=== PATIENT | male | born 1980 | race Caucasian/White ===

== ENCOUNTER 2020-01-17 18:38 | Emergency (ER) | payer OTHER ==
[~2020-01-17] VITALS: Ht 188 cm; Wt 70.3 kg
[2020-01-17 19:07] LABS: ABSOLUTE BASOPHILS 0.1 thou/uL (0.0-0.2); ABSOLUTE EOSINOPHILS 0.1 thou/uL (0.0-0.7); ABSOLUTE LYMPHOCYTES 1.6 thou/uL (0.8-5.3); ABSOLUTE MONOCYTES 0.5 thou/uL (0.0-1.2); BASOPHILS 1.2 %; EOSINOPHILS 1.3 %; HEMATOCRIT 38.3 % (42.0-52.0); LYMPHOCYTES 25.5 %; MCH 30.4 pg (26.0-34.0); MCV 89.5 fL (80.0-100.0); MONOCYTES 7.4 %; NUCLEATED RBCS 0 /100WBC; PLATELET COUNT* 271 thou/uL (150-400); POLYS 64.6 %; RBC 4.28 mil/uL (4.50-6.00); RDW-CV 13.5 % (10.5-14.5); WBC 6.2 thou/uL (4.0-11.0)
[2020-01-17 19:21] LABS: CALCIUM 8.4 mg/dL (8.5-10.1); CREATININE 1.3 mg/dL (0.6-1.3); POTASSIUM 3.7 mmol/L (3.5-5.1)
[2020-01-17 19:30] LABS: ALBUMIN 3.6 g/dL (3.4-5.0); MAGNESIUM 2.1 mg/dL (1.8-2.4); TOTAL BILIRUBIN 0.5 mg/dL (<0.1-1.0); TOTAL PROTEIN 7.4 g/dL (6.4-8.2)
[2020-01-17 19:45] VITALS: BP 106/49
--- NOTE | 2020-01-21 12:25 | EKG ---
[place] [address] ELECTROCARDIOGRAM REPORT Name: JOHN RODRIGUEZ Room: [facility]#: [id number] Admission: 01/17/20 Attend Phys: Discharge: 01/17/20 Date of : 84 Date of Service: 01/17/201840 Report #: [id number] THIS REPORT FOR: //name// [facility] ED Test Date: 2020-01-17 Test Time: 18:41:10 Pat Name: JOHN RODRIGUEZ Department: Room: Gender: Chief Of Party: : 1980 Requested By: Carrington George Order Number: [id number] MD: Toribio Braswell Measurements Intervals [place] Rate: 118 P: 72 NV: 134 QRS: 91 QRSD: 92 T: 8 QT: 328 QTc: 460 Interpretive Statements Sinus tachycardia Borderline right axis deviation Consider left ventricular hypertrophy No previous ECG available for comparison Electronically Signed On 01-18-2020 11:02:56 CDT by Toribio Braswell [email or web address] <ELECTRONICALLY SIGNED> By: Toribio Braswell MD, [facility] 01/18/20 1102 40 40 Toribio Braswell MD, FACC /EPI
== END 2020-01-17 19:47 ==
LOC: M.ERS 18:38
PROVIDERS: Emergency Medicine Emergency Medical Services
DX: R07.89 Other chest pain (principal); Z88.1 Allergy status to other antibiotic agents; Z88.0 Allergy status to penicillin